=== PATIENT | female | born 1930 | race Caucasian/White ===

== ENCOUNTER 2017-11-09 10:03 | Emergency (ER) | payer MEDICARE ==
[~2017-11-09 10:03] MED LIST: EPINEPHrine 1 MG/10 ML Abboject SYRINGE ONE
== END 2017-11-09 12:00 | disposition expired ==
LOC: MADERS 10:03
DX: I46.9 Cardiac arrest, cause unspecified (principal); I11.0 Hypertensive heart disease with heart failure; I50.9 Heart failure, unspecified; E03.9 Hypothyroidism, unspecified; E78.5 Hyperlipidemia, unspecified; Z87.891 Personal history of nicotine dependence
CPT/HCPCS: 31500; 92950; J0171